=== PATIENT | female | born 1975 | race Hispanic/Latino ===

== ENCOUNTER 2019-05-23 13:58 | Outpatient (CLI) | payer OTHER ==
--- NOTE | 2019-05-23 15:03 | MMO ---
Bilateral MAMMO Bilat Diag [facility]. CLINICAL HISTORY: Patient is 43 years old and is seen for diagnostic exam. The patient has no family history of breast cancer. The patient has no personal history of cancer. VIEWS: The views performed were: bilateral craniocaudal with tomosynthesis; bilateral mediolateral oblique with tomosynthesis; and bilateral mediolateral with tomosynthesis. FILMS COMPARED: The present examination has been compared to prior imaging studies performed at [facility] on 02/22/2017, 08/24/2017, 03/10/2018 and 05/23/2019. MAMMOGRAM FINDINGS: There are scattered fibroglandular densities. Finding 1: There are several stable round masses with circumscribed margins seen in the right breast. Finding 2: There is a new round mass measuring 11 millimeters with circumscribed margins seen in the upper-outer region of the left breast. There are no suspicious masses, suspicious calcifications, or new areas of architectural distortion. IMPRESSION: FINDING 1: STABLE MASSES IN THE RIGHT BREAST ARE BENIGN. FINDING 2: NEW MASS IN THE LEFT BREAST IS BENIGN. CYST ON ULTRASOUND. A ROUTINE FOLLOW-UP MAMMOGRAM IN 1 YEAR IS RECOMMENDED. THE RESULTS OF THIS EXAM WERE SENT TO THE PATIENT. ACR BI-RADS Category 2 - Benign finding MAMMOGRAPHY NOTE: 1. A negative mammogram report should not delay a biopsy if a dominant of clinically suspicious mass is present. 2. Approximately 10% to 15% of breast cancers are not detected by mammography. 3. Adenosis and dense breasts may obscure an underlying neoplasm.
--- NOTE | 2019-05-23 16:11 | ULT ---
EXAM: LEFT BREAST ULTRASOUND: 05/23/19 HISTORY: Abnormal mammogram with a new mass at approximately 3 o'clock. There is a circumscribed anechoic cyst which appears to be slightly complicated, with several small s eptations and possibly minimal debris. Overall size approximates 0.6 x 0.7 x 1 cm. This corresponds to the mammographic finding. IMPRESSION: Slightly irregularly shaped slightly complicated appearing left breast cyst at 3 o'clock, 5 cm from t he nipple. BIRADS 2: Benign Finding(s) Routine annual screening mammography (for women over age 40). POS: OFF
== END 2019-05-23 13:59 | disposition home or self-care (01) ==
LOC: BICMAMMO 13:58
PROVIDERS: ATTEND Nurse Practitioner Family
DX: Z12.31 Encounter for screening mammogram for malignant neoplasm of breast (principal); N63.10 Unspecified lump in the right breast, unspecified quadrant; N63.21 Unspecified lump in the left breast, upper outer quadrant; N60.02 Solitary cyst of left breast
CPT/HCPCS: 77066; G0279

== ENCOUNTER 2020-05-27 15:37 | Outpatient (CLI) | payer OTHER ==
--- NOTE | 2020-05-27 16:36 | MMO ---
Bilateral MAMMO Bilat Screen [facility]. CLINICAL HISTORY: Patient is 44 years old and is seen for screening. The patient has no family history of breast cancer. The patient has no personal history of cancer. VIEWS: The views performed were: bilateral craniocaudal with tomosynthesis and bilateral mediolateral oblique with tomosynthesis. FILMS COMPARED: The present examination has been compared to prior imaging studies performed at [facility] on 08/24/2017, 03/10/2018 and 05/23/2019. This study has been interpreted with the assistance of computer-aided detection. MAMMOGRAM FINDINGS: There are scattered fibroglandular densities. There are equal density, oval masses seen in both breasts. There are no suspicious masses, suspicious calcifications, or new areas of architectural distortion. IMPRESSION: THERE IS NO MAMMOGRAPHIC EVIDENCE OF MALIGNANCY. A ROUTINE FOLLOW-UP MAMMOGRAM IN 1 YEAR IS RECOMMENDED. THE RESULTS OF THIS EXAM WERE SENT TO THE PATIENT. ACR BI-RADS Category 2 - Benign finding MAMMOGRAPHY NOTE: 1. A negative mammogram report should not delay a biopsy if a dominant of clinically suspicious mass is present. 2. Approximately 10% to 15% of breast cancers are not detected by mammography. 3. Adenosis and dense breasts may obscure an underlying neoplasm. Reported by: MARGARET ELIZABETH MD Electonically Signed: [id number]
== END 2020-05-27 15:38 | disposition home or self-care (01) ==
LOC: BICMAMMO 15:37
PROVIDERS: ATTEND Nurse Practitioner Family
DX: Z12.31 Encounter for screening mammogram for malignant neoplasm of breast (principal)
CPT/HCPCS: 77063; 77067

== ENCOUNTER 2024-11-29 15:08 | Outpatient (CLI) | payer OTHER | END 2024-11-29 15:09 | disposition home or self-care (01) | LOC: BICMAMMO 15:08 | PROVIDERS: ATTEND Nurse Practitioner Family | DX: Z12.31 Encounter for screening mammogram for malignant neoplasm of breast (principal) | CPT/HCPCS: 77063; 77067 ==

== ENCOUNTER 2025-11-08 15:41 | Outpatient (CLI) | payer OTHER | END 2025-11-08 15:42 | disposition home or self-care (01) | LOC: ULT 15:41 | PROVIDERS: ATTEND Nurse Practitioner Family | DX: R10.20 Pelvic and perineal pain unspecified side (principal) | CPT/HCPCS: 76856 ==